=== PATIENT | female | born 1950 | race Hispanic/Latino ===

== ENCOUNTER 2018-04-19 15:22 | Outpatient (CLI) | payer OTHER | END 2018-04-19 15:23 | disposition home or self-care (01) | LOC: LABHHL 15:22 | PROVIDERS: ATTEND Specialist | DX: D36.0 Benign neoplasm of lymph nodes (principal) | CPT/HCPCS: 88305; 88341; 88342; 88361 ==

== ENCOUNTER 2018-05-09 06:19 | Day surgery (SDC) | payer MEDICARE ==
[2018-05-09] MEDS ORDERED: DIPRIVAN 10 MG/ML IV ONE (07:09)
[2018-05-09] MEDS ORDERED: ZOFRAN ONE (07:09)
[2018-05-09] MEDS ORDERED: XYLOCAINE MPF 2% ONE (07:09)
[2018-05-09] MEDS ORDERED: DILAUDID ONE (07:09)
[2018-05-09] MEDS ORDERED: HEPARIN 10,000 UNITS/10 ML ONE (07:26)
[2018-05-09] MEDS ORDERED: NACL 0.9% 100 ML ONE (07:27)
[2018-05-09] MEDS ORDERED: XYLOCAINE 1% 20 mL ONE (07:27)
[2018-05-09] MEDS ORDERED: MARCAINE 0.25% INFILTRATI ONE ×2 (07:27→08:38)
[2018-05-09] MEDS ORDERED: TORADOL IV PRN (07:45)
[2018-05-09] MEDS ORDERED: LACTATED RINGERS 1,000 ML IV SCH ×2 (08:00)
[2018-05-09] MEDS ORDERED: DILAUDID IV PRN (08:00)
[2018-05-09] MEDS ORDERED: VANCOMYCIN/NS 1 GM/250 ML 1 GM/250 ML BAG IV NR (08:00)
[2018-05-09] MEDS ORDERED: DEMEROL IV PRN (08:00)
[2018-05-09] MEDS ORDERED: VERSED IV NR (08:00)
--- NOTE | 2018-05-09 08:00 | Anesthesia Day of Surgery ---
Anesthesia Day of Surgery - Day of Surgery Patient Examined: Yes Patient H&P Reviewed: Yes Patient is NPO: Yes
--- NOTE | 2018-05-09 08:02 | Anesthesia Consultation ---
Anesthesia Consult and Med Hx Date of service: 05/09/18 - Airway Anesthetic Teeth Evaluation: Good ROM Head & Neck: Adequate Mental/Hyoid Distance: Adequate Mallampati Class: Class II Intubation Access Assessment: Probably Good - Pulmonary Exam CTA: Yes - Cardiac Exam Cardiac Exam: RRR - Pre-Operative Health Status ASA Pre-Surgery Classification: ASA3 Proposed Anesthetic Plan: General - Pulmonary Hx Smoking: No Hx Respiratory Symptoms: No SOB: No - Cardiovascular System Hx Hypertension: No (reports low BP at baseline. Normotensive today.) Hx Heart Attack/AMI: No - Central Nervous System Hx Seizures: No CVA: No Hx Psychiatric Problems: Yes (bipolar d/o, anxiety) - Gastrointestinal Hx Gastroesophageal Reflux Disease: No - Endocrine Hx Renal Disease: No (recent CMP on chart wnl) Hx Liver Disease: No Hx Insulin Dependent Diabetes: No Hx Non-Insulin Dependent Diabetes: No Hx Hypothyroidism: Yes - Hematic Hx Anemia: Yes (Hb 11 on recent CBC) - Other Systems Hx Alcohol Use: No Hx Substance Use: No Hx Cancer: Yes (breast CA) Hx Obesity: No
[2018-05-09] MEDS ORDERED: XYLOCAINE 1% 20 mL INFILTRATI ONE (08:38)
[2018-05-09] MEDS ORDERED: DECADRON ONE (08:46)
[2018-05-09] MEDS ORDERED: NACL 0.9% IV ONE (08:49)
[2018-05-09] MEDS ORDERED: HEPARIN 10,000 UNITS/10 ML IV ONE (08:49)
--- NOTE | 2018-05-09 09:38 | Short Stay Summary ---
<AMY MOTT - Last Filed: 05/09/18 09:33> Short Stay Documentation Date of service: 05/09/18 Narrative H&P: 67 yo F with newly diagnosed with breast cancer who presents for core needle biopsy of right sided lymph node and placement of infusaport. No complaints. All risks, benefits, and alternatives to procedure discussed with the patient and questions answered. - History Principal diagnosis: breast cancer H&P: obtained from office - Allergies and Medications Current Medications: Allergies Penicillins Allergy (Verified 05/08/18 11:34) Swelling Home Medications Medication Instructions Recorded Confirmed Last Taken Type Bupropion HCl [Wellbutrin XL] 300 mg PO QAM 05/08/18 05/08/18 05/08/18 History Levothyroxine [Synthroid] 75 mcg PO QAM 05/08/18 05/08/18 05/08/18 History OLANzapine [ZyPREXA] 10 mg PO DAILY 05/08/18 05/08/18 05/08/18 History Valbenazine Tosylate [Ingrezza] 80 mg PO DAILY 05/08/18 05/08/18 05/08/18 History Valproic Acid [Depakene] 250 mg PO BID 05/08/18 05/08/18 05/08/18 History traMADol [Ultram] 50 mg PO Q6HR PRN 05/08/18 05/09/18 05/09/18 05:00 History Active Medications Hydromorphone HCl (Dilaudid) 0.5 mg IV Q10MIN PRN PRN Reason: Pain , Severe (7-10) Stop: 05/09/18 12:00 Lactated Ringer's (Lactated Ringers) 1,000 mls @ 100 mls/hr IV DIRECT ROLANDO Last Admin: 05/09/18 07:50 Dose: 100 mls/hr Vancomycin HCl (Vancomycin/Ns 1 Gm/250 Ml) 1 gm in 250 mls @ 167.007 mls/hr IV PREOP NR; Protocol Stop: 05/09/18 12:00 Last Admin: 05/09/18 07:58 Dose: 167.007 mls/hr Ketorolac Tromethamine (Toradol) 30 mg IV ONCE PRN PRN Reason: Pain, Moderate (4-6) Stop: 05/09/18 11:00 Meperidine HCl (Demerol) 25 mg IV ONCE PRN PRN Reason: Shivering Stop: 05/09/18 11:00 Midazolam HCl (Versed) 2 mg IV PREOP NR Stop: 05/09/18 23:59 Last Admin: 05/09/18 07:57 Dose: 2 mg - Brief post op/procedure progress note Date of procedure: 05/09/18 Pre-op diagnosis: breast cancer Post-op diagnosis: same Procedure: Placement of left sided subclavian port a cath with ultrasound guidance, fluoroscopy Anesthesia: MAC, local Findings: good placement of port on post op CXR, no PTX Surgeon: AMY MOTT Estimated blood loss: minimal Pathology: none Condition: stable - Hospital course Hospital course: Pt was observed in the recovery room and discharged to home in stable condition when criteria was met - Disposition Condition at discharge: Good Disposition: DC-01 TO HOME OR SELFCARE Short Stay Discharge Plan Activity: other (avoud heavy lifting for the next 2-3 days) Diet: regular Wound: open to air (may shower tomorrow, pat incisions dry, do not scrub. Do not submerge incisions in water for the next 2 weeks ) Additional Instructions: Call surgeon's office if you have fever>100.4, drainage or redness around the incisions. You will have some bruising which is normal. Place an ice pack over the incisions for pain relief. Dr. Mott [phone] [address] [place] [address] Follow up with: PRIMARY CAREMD [Primary Care Provider] - 7 Days SULY GOULD MD [Staff Physician] - 7 Days Prescriptions: Ibuprofen [Motrin 800 MG tab] 800 mg PO Q8HR PRN #30 tablet PRN Reason: Pain, Moderate (4-6) <SULY GOULD - Last Filed: 05/09/18 09:55> Short Stay Documentation - Allergies and Medications Current Medications: Allergies Penicillins Allergy (Verified 05/08/18 11:34) Swelling Home Medications Medication Instructions Recorded Confirmed Last Taken Type Bupropion HCl [Wellbutrin XL] 300 mg PO QAM 05/08/18 05/08/18 05/08/18 History Levothyroxine [Synthroid] 75 mcg PO QAM 05/08/18 05/08/18 05/08/18 History OLANzapine [Zyprexa] 10 mg PO DAILY 05/08/18 05/08/18 05/08/18 History Valbenazine Tosylate [Ingrezza] 80 mg PO DAILY 05/08/18 05/08/18 05/08/18 History Valproic Acid [Depakene] 250 mg PO BID 05/08/18 05/08/18 05/08/18 History traMADol [Ultram 50 MG tab] 50 mg PO Q6HR PRN 05/08/18 05/09/18 05/09/18 05:00 History Ibuprofen [Motrin 800 MG tab] 800 mg PO Q8HR PRN #30 tablet 05/09/18 Unknown Rx Active Medications Hydromorphone HCl (Dilaudid) 0.5 mg IV Q10MIN PRN PRN Reason: Pain , Severe (7-10) Stop: 05/09/18 12:00 Lactated Ringer's (Lactated Ringers) 1,000 mls @ 100 mls/hr IV DIRECT ROLANDO Last Admin: 05/09/18 07:50 Dose: 100 mls/hr Vancomycin HCl (Vancomycin/Ns 1 Gm/250 Ml) 1 gm in 250 mls @ 167.007 mls/hr IV PREOP NR; Protocol Stop: 05/09/18 12:00 Last Admin: 05/09/18 07:58 Dose: 167.007 mls/hr Ketorolac Tromethamine (Toradol) 30 mg IV ONCE PRN PRN Reason: Pain, Moderate (4-6) Stop: 05/09/18 11:00 Meperidine HCl (Demerol) 25 mg IV ONCE PRN PRN Reason: Shivering Stop: 05/09/18 11:00 Midazolam HCl (Versed) 2 mg IV PREOP NR Stop: 05/09/18 23:59 Last Admin: 05/09/18 07:57 Dose: 2 mg
--- NOTE | 2018-05-09 09:56 | Procedure Note ---
Date of procedure: 05/09/18 Pre-op diagnosis: Right breast cancer of the upper outer quadrant with suspicious axillary LN Post-op diagnosis: same Procedure: Right axillary ultrasound guided lymph node biopsy Anesthesia: CRISA Surgeon: SULY GOULD Estimated blood loss: minimal Pathology: list (right axillary lymph node) Specimen disposition: to lab Condition: stable Disposition: PACU
[2018-05-09 10:45] VITALS: BP 110/58
--- NOTE | 2018-05-09 12:38 | Post Anesthesia Evaluation ---
- Post Anesthesia Evaluation Patient Participated: Yes Airway Patent: Yes Stable Respiratory Function: Yes Nausea/Vomiting: No Temp > 96.8F: Yes Pain Manageable: Yes Adequeate Hydration: Yes Anesthesia Complications: No Block Receding Appropriately: Not Applicable
--- NOTE | 2018-05-09 13:30 | Operative Report ---
Operative Report Operative Report: Date of procedure: 05/09/18 Pre-op diagnosis: breast cancer Post-op diagnosis: same Procedure: Placement of left sided subclavian port a cath with ultrasound guidance, fluoroscopy Anesthesia: MAC, local Findings: good placement of port on post op CXR, no PTX Surgeon: AMY MOTT Estimated blood loss: minimal Pathology: none Condition: stable HPI and indication: Patient is a 67-year-old female who has been diagnosed with breast cancer. The patient is seen by oncology as an outpatient and deemed a candidate for chemotherapy. All of the risks associated with the procedure were discussed with the patient including but not limited to pneumothorax, infection , bleeding, malpositioned port, injury to other structures. The patient understands and all questions were answered. Consent was signed and placed on chart. Procedure in detail: The patient was identified in the preoperative area, taken back to operating room, placed on operating table in supine position. After anesthesia was induced both arms were tucked and upper chest and neck were prepped and draped in usual sterile fashion. A timeout was performed. The was placed in Trendelenburg position. Local anesthetic was infiltrated into the skin at the intended puncture site. The left subclavian vein was visualized using ultrasound and was accessed on the first stick. There was return of dark red, nonpulsatile blood. The wire was threaded under fluoroscopy without resistance and positioning confirmed. The needle was then removed. Using a 15 blade, an incision was made in the LEFT upper chest and dissection carried down through the skin and subcutaneous tissue using Bovie electrocautery. Hemostasis was achieved along the way. A pocket for the port was then created bluntly and with electrocautery. The catheter was flushed and tunneled from the pocket to the wire. A breakaway catheter/dilator sheath then inserted over the wire under fluoroscopy, and the wire and dilator removed. The catheter was then inserted through the breakaway catheter which was then removed. The catheter sat flush under the skin. Using continuous fluoroscopy, the catheter was pulled back until the tip was visualized in the right atrium. The catheter was then cut to size and the port attached in the usual fashion. The port was then sutured into place to the pre-pectoral fascia using 2-0 Vicryl interrupted sutures. The wound was irrigated and hemostasis ensured. The port was tested with heparinized saline and there was return of blood and it flushed easily. The port was then instilled with 3000 units of heparin. The deep dermal layer was then closed with interrupted 3-0 Vicryl stitches. The skin incisions were closed with 4-0 Monocryl subcuticular stitches and skin glue. Intraoperative chest x-ray did show good positioning of the port, without evidence of pneumothorax At the end of the case, all sponge, instrument, sharp counts were correct 2. The patient was awoken from anesthesia and taken to PACU in stable condition.
--- NOTE | 2018-05-09 14:06 | Fluoroscopy Report ---
Portable chest: Tube placement; right breast cancer. A left port is present entering the subclavian vein. The tip is located in the right atrium. The lungs are clear except for focal linear area of atelectasis/scar at the left lung base. No pneumothorax. The mediastinal contour is normal in size. The aorta is tortuous. No prior exam for comparison. Impression: Port placement as described. No complication noted.
== END 2018-05-09 11:25 | disposition home or self-care (01) ==
LOC: OR 06:19
PROVIDERS: ATTEND Surgery
DX: C50.919 Malignant neoplasm of unspecified site of unspecified female breast (principal); I10 Essential (primary) hypertension; E03.9 Hypothyroidism, unspecified; Z88.0 Allergy status to penicillin; Z79.899 Other long term (current) drug therapy; Z86.73 Personal history of transient ischemic attack (TIA), and cerebral infarction without residual deficits; Z90.710 Acquired absence of both cervix and uterus; Z86.2 Personal history of diseases of the blood and blood-forming organs and certain disorders involving the immune mechanism; Z80.1 Family history of malignant neoplasm of trachea, bronchus and lung; Z98.890 Other specified postprocedural states
CPT/HCPCS: 36561; 77001; 88305; C1788; J1100; J1170; J1644; J2250; J2405; J2704; J3370; J7120

== ENCOUNTER 2018-05-11 13:14 | Outpatient (CLI) | payer MEDICARE ==
--- NOTE | 2018-05-15 14:41 | Magnetic Resonance Report ---
BILATERAL BREAST MRI WITHOUT AND WITH CONTRAST: 05/11/18 CLINICAL: Newly diagnosed right axillary cancer. 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 Histologic grade 3. A skin punch biopsy on the same day revealed benign skin with moderate perivascular lymphocytic inflammation negative for malignancy or dermal lymphovascular invasion. COMPARISON:None.. TECHNIQUE: Axial 1.0-mm T1 without, axial high resolution 2.0-mm T2 and axial 1.0-mm dynamic Vibrant high-resolution postcontrast T1 fat saturation sequences on a 1.5 Gypsy magnet. The examination was performed with an 8 channel dedicated [employer] breast coil. Post processing with CAD and subtraction was performed on an [employer] workstation. 18.0 cc of Multihance was injected without incident for the contrast portion of the exam. Consent was obtained prior to the administration of the contrast. FINDINGS: The patient stopped and restarted the examination several times. Motion degrades the quality of the exam but the examination is of sufficient diagnostic quality. Right: Minimal background parenchymal enhancement. The known cancer is a an irregular enhancing mass lateral to the pectoral muscle in the lower axilla measuring 4.8 x 4.6 x 3.5 cm. It demonstrates heterogeneous enhancement with mixed kinetics, 734% peak enhancement, 12% type I persistent, 28% type II plateau and 60% type III washout waveforms. The mass is contiguous to the pectoral muscle but does not invade the chest wall. No other mass or suspicious enhancement of the right breast. An additional suspicious right axillary lymph node measures 2.5 x 1.4 cm. Left: Minimal background parenchymal enhancement. No mass or suspicious enhancement. No suspicious lymph nodes. IMPRESSION: 1. Known 4.8 cm right axillary breast cancer and no additional suspicious lesion of the right breast. 2. One additional suspicious right axillary lymph node. 3. Negative left breast and no suspicious left lymph nodes. RIGHT BI-RADS 6 -- Known Cancer LEFT BI-RADS 1 -- Negative
== END 2018-05-11 13:15 | disposition home or self-care (01) ==
LOC: SPVIMAG 13:14
PROVIDERS: ATTEND Surgery
DX: C50.611 Malignant neoplasm of axillary tail of right female breast (principal); I10 Essential (primary) hypertension; E03.9 Hypothyroidism, unspecified; Z90.710 Acquired absence of both cervix and uterus
CPT/HCPCS: A9577; C8908; 77059